=== PATIENT | male | born 1990 | race Two or more races ===

== ENCOUNTER 2020-11-26 04:04 | Emergency (ER) | payer OTHER ==
[~2020-11-26] VITALS: Ht 185.4 cm; Wt 109.1 kg
[2020-11-26 04:56] VITALS: BP 129/78
== END 2020-11-26 05:36 | disposition left against medical advice (07) ==
LOC: EMS 04:04
DX: R10.2 Pelvic and perineal pain (principal); Z53.21 Procedure and treatment not carried out due to patient leaving prior to being seen by health care provider